=== PATIENT | male | born 1955 | race Hispanic/Latino ===

== ENCOUNTER 2023-09-30 10:59 | Outpatient (RCR) | payer MEDICARE ==
[~2023-09-30 10:59] MED LIST: TRYPSIN/BALSAM PERU/CASTOR OIL ONE
== END 2023-10-01 ==
LOC: WCC 10:59
PROVIDERS: ATTEND Internal Medicine Infectious Disease
DX: E11.621 Type 2 diabetes mellitus with foot ulcer (principal); L97.516 Non-pressure chronic ulcer of other part of right foot with bone involvement without evidence of necrosis; B96.29 Other Escherichia coli [E. coli] as the cause of diseases classified elsewhere
CPT/HCPCS: 87071; 87075; 87205

== ENCOUNTER → 2023-09-30 | Outpatient (REF) | payer MEDICARE | LOC: DX 08:37 | PROVIDERS: ATTEND Internal Medicine Infectious Disease | DX: E11.621 Type 2 diabetes mellitus with foot ulcer (principal); L97.516 Non-pressure chronic ulcer of other part of right foot with bone involvement without evidence of necrosis; M86.171 Other acute osteomyelitis, right ankle and foot | CPT/HCPCS: 36569; 71045 ==

== ENCOUNTER → 2023-10-15 | Outpatient (REF) | payer MEDICARE | LOC: RAD 11:35 | PROVIDERS: ATTEND Internal Medicine Infectious Disease | DX: M86.171 Other acute osteomyelitis, right ankle and foot (principal); E11.621 Type 2 diabetes mellitus with foot ulcer; L97.516 Non-pressure chronic ulcer of other part of right foot with bone involvement without evidence of necrosis | CPT/HCPCS: 71046; 93005; 93306 ==

== ENCOUNTER 2023-11-29 08:00 | Outpatient (RCR) | payer MEDICARE ==
[~2023-11-29 08:00] MED LIST changes: +COLLAGENASE OINTMENT 30 GM TUBE ONE; +MINERAL OIL/PETROLAT/GLYCERI 6OZ BTL ONE
== END 2023-11-29 13:41 | disposition home or self-care (01) ==
LOC: WCC 08:00
PROVIDERS: ATTEND Internal Medicine Infectious Disease
DX: E11.621 Type 2 diabetes mellitus with foot ulcer (principal); M86.171 Other acute osteomyelitis, right ankle and foot; L97.516 Non-pressure chronic ulcer of other part of right foot with bone involvement without evidence of necrosis
CPT/HCPCS: 36415 ×15; 82948 ×16; 99212 ×3; 99213 ×5; G0277 ×18

== ENCOUNTER 2023-12-20 15:05 | Outpatient (RCR) | payer MEDICARE ==
[~2023-12-20 15:05] MED LIST changes: -COLLAGENASE OINTMENT 30 GM TUBE ONE; -MINERAL OIL/PETROLAT/GLYCERI 6OZ BTL ONE
== END 2024-01-01 ==
LOC: WCC 15:05
PROVIDERS: ATTEND Podiatrist Foot & Ankle Surgery
DX: E11.621 Type 2 diabetes mellitus with foot ulcer (principal); M86.171 Other acute osteomyelitis, right ankle and foot; L97.516 Non-pressure chronic ulcer of other part of right foot with bone involvement without evidence of necrosis
CPT/HCPCS: 36415; 82948; 99213; G0277

== ENCOUNTER 2024-01-17 14:30 | Outpatient (RCR) | payer MEDICARE ==
[~2024-01-17 14:30] MED LIST changes: +COLLAGENASE OINTMENT 30 GM TUBE ONE; -TRYPSIN/BALSAM PERU/CASTOR OIL ONE
== END 2024-02-01 ==
LOC: WCC 14:30
PROVIDERS: ATTEND Podiatrist Foot & Ankle Surgery
DX: E11.621 Type 2 diabetes mellitus with foot ulcer (principal); L97.516 Non-pressure chronic ulcer of other part of right foot with bone involvement without evidence of necrosis